=== PATIENT | female | born 1995 | race Caucasian/White ===

== ENCOUNTER 2021-09-01 08:17 | Emergency (ER) | payer BC ==
[~2021-09-01] VITALS: Ht 170.2 cm; Wt 49.9 kg
== END 2021-09-01 13:25 | disposition home or self-care (01) ==
LOC: ER 08:17
DX: N39.0 Urinary tract infection, site not specified (principal)

== ENCOUNTER 2021-12-09 17:11 | Emergency (ER) | payer OTHER ==
[~2021-12-09] VITALS: Ht 172.7 cm; Wt 52.2 kg
== END 2021-12-09 20:15 | disposition left against medical advice (07) ==
LOC: ER 17:11
DX: O23.41 Unspecified infection of urinary tract in pregnancy, first trimester (principal); N39.0 Urinary tract infection, site not specified; Z3A.01 Less than 8 weeks gestation of pregnancy; Z53.29 Procedure and treatment not carried out because of patient's decision for other reasons